=== PATIENT | female | born 1950 | race Caucasian/White ===

== ENCOUNTER 2024-10-24 12:14 | Emergency (ER) | payer MEDICARE, OTHER, SELFPAY ==
[2024-10-24 12:16] VITALS: BP 173/92
[2024-10-24 13:51] VITALS: BMI 32.9
[2024-10-24 13:54] VITALS: BP 160/88
[2024-10-24 13:55] VITALS: BP 161/91
[2024-10-24 14:12] LABS: Hematocrit 41.5 % (37.0-47.0); Hemoglobin 13.3 g/dL (12.0-16.0); Mean Corp Hgb Conc. 32.0 g/dL (33.0-37.0); Mean Corpuscular Volume 79.7 fL (81.0-99.0); Nucleated Red Blood Cells % 0 %; Platelet Count 246 10^3/uL (130-400); Red Cell Dist. Width 16.7 % (11.5-14.5)
[2024-10-24 14:27] LABS: Blood Urea Nitrogen 17 mg/dl (7-17); Calcium 9.8 mg/dl (8.4-10.2); Carbon Dioxide 25 mmol/L (22-30); Chloride 110 mmol/L (98-107); Estimated Creatinine Clearance 65 ml/min; Glucose 118 mg/dl (70-99); Potassium 4.2 mmol/L (3.5-5.1); Sodium 142 mmol/L (135-145); eGFR > 60.00
[2024-10-24 14:40] LABS: Troponin I < 0.012 ng/ml
[2024-10-24 15:00] VITALS: BP 141/79
--- NOTE | 2024-10-24 15:04 | ED.GENMED ---
History of Present Illness
General
Chief Complaint: Nose Bleed
Source: patient and spouse
Exam Limitations: none
Time Seen by Provider: 10/24/24 13:22
Nursing documentation reviewed up to this point in time: agreed with
History of Present Illness
History of Present Illness:
74-year-old female presenting to the emergency department today with concerns of intermittent nosebleed over the past few days as well as having an abnormal EKG at the urgent care. Probably here no ongoing symptoms. Very minimal bleeding from the
right nare which was visualized on exam. No chest pain or shortness of breath or numbness or weakness no signs of hypertensive emergency. Did have elevated blood pressure here in the 170s over 90s but was improving without any specific treatment
here.
Review of Systems
Review of Systems
Allergies reviewed?: Yes
All Other Systems: ROS reviewed and negative except as documented in HPI and ROS
Phy Exam
Physical Exam
Physical Exam:
GENERAL: Alert , in no apparent distress
EYE: pupils equal and reactive
NECK: Supple, no significant adenopathy.
ENT: Small pinpoint area of bleeding from the right nasal septum o/p clr, mmm.
CARDIAC: Regular rate and rhythm .
LUNGS: Clear breath sounds bilaterally, no acute respiratory distress, no wheezes/rales/rhonchi
ABDOMEN: Soft, without focal tenderness, no r/g, no cvat
NEUROLOGICAL: Alert and oriented, no focal neuro deficits
SKIN: Warm and dry, skin intact.
MUSCULOSKELETAL: No edema, well perfused.
PSYCH: Normal and appropriate interaction.
Course
Orders/Labs/Results
Orders:
Orders
10/24/24 12:23
EKG [Electrocardiogram (*1)] Urgent
Reason for Study: Abnormal EKG
EKG- Treatment ONCE
10/24/24 13:58
BMP [Basic Metabolic Panel] Urgent
CBC/With Diff [Complete Blood Count/With Diff] Urgent
Troponin I Urgent
Abnormal Lab Results
10/24/24
13:58
MCV 79.7 L fL
(81.0-99.0)
MCH 25.5 L pg
(27.0-31.0)
MCHC 32.0 L g/dL
(33.0-37.0)
RDW 16.7 H %
(11.5-14.5)
Chloride 110 H mmol/L
(98-107)
Glucose 118 H mg/dl
(70-99)
10/24/24 13:58
10/24/24 13:58
Vital Signs
Initial and Last Documented VS:
Initial Vital Signs
Temp Pulse Resp BP Pulse Ox
97.4 F 71 16 173/92 100
10/24/24 12:16 10/24/24 12:16 10/24/24 12:16 10/24/24 12:16 10/24/24 12:16
Last Documented Vital Signs
Temp Pulse Resp BP Pulse Ox
97.4 F 78 16 141/79 100
10/24/24 12:16 10/24/24 13:55 10/24/24 12:16 10/24/24 15:00 10/24/24 15:06
Procedures
Nosebleed
Drug treatment: Lidocaine and Epinephrine
Treatment: Silver nitrate cautery
Post treatment bleeding: none- good control
MDM/Problems Addressed
MDM/Problems Addressed:
74-year-old female presenting to the emergency department today with concerns of intermittent nosebleed and abnormal EKG from urgent care. Here her EKG shows an anterior fascicular block no old EKGs for comparison no signs of ischemia normal T
waves normal ST segments. No chest pain or shortness of breath at any point recently. Very unlikely represent acute process. Troponin negative labs very small area of bleeding from the right anterior nare was cauterized. She claims that she got
a humidifier for home otherwise stable for discharge. Return precautions given. Also of note the blood pressure was initially elevated but improved prior to treatment.
Prior to discharge patient did have rebleed of the right nare at this point this was packed with Merocel which she tolerated very well and will follow-up closely with ENT.
*Pulse Oximetry
SaO2: 100
Oxygen Mode of Delivery: Room air
Patient hypoxic: no (100)
*Critical Care Note
Total Time (30-74mins, 75-104mins- exclusive of procedures): Not Applicable
ED Attending Note
-
Portions of this chart may have been created with voice recognition software.� Occasional wrong word or��sound alike� substitutions may have occurred due to the inherent limitations of voice recognition software.
Discharge Plan
Departure
Patient Disposition: Home (Routine Discharge)
Date of Disposition: 10/24/24
Time of Disposition: 15:20
Patient with high blood pressure during this ER visit?: No
Condition: Good
Covid-19: Not Applicable
Discharge Problem:
Acute anterior epistaxis, High blood pressure, Abnormal ECG
Instructions: Nosebleeds (DC), BLOOD PRESSURE
Referrals:
Aleksey Clayton DO [Active, Cardiology] - Follow up in 5-7 days
Leyla Gaspar DO [Family Provider, Family Practice]
Activity Restrictions/Additional Instructions:
You came to the emergency department today with concerns of an abnormal EKG as well as nosebleeds. Here you had the nosebleed cauterized. Please make sure the area stays moisturized and use a humidifier. Please also follow-up closely with
cardiology for your EKG. Return for any worsening, new or concerning symptoms.
Interventions
Interventions:
*Risk Screen - Suicide Last Done: 10/24/24 12:16
*General Assessment Last Done: 10/24/24 13:52
*Neglect/Abuse Screening Last Done: 10/24/24 12:16
*ED- Fall Risk Assessment Last Done: 10/24/24 13:52
*ED COVID-19 Vaccine History Last Done: 10/24/24 13:52
ED-EENT Assessment Last Done: 10/24/24 13:53
Discharge Date and Time
Print Language: [email or web address]
== END 2024-10-24 16:17 | disposition home or self-care (01) ==
LOC: EMR 12:14
PROVIDERS: Physician Assistant; EMERGENCY PHYSICIAN Student in an Organized Health Care Education/Training Program; FAMILY PHYSICIAN Family Medicine
DX: R04.0 Epistaxis (principal); R94.31 Abnormal electrocardiogram [ECG] [EKG]; I44.4 Left anterior fascicular block
CPT/HCPCS: 30901; 99284; 80048; 84484; 85025; 93005